=== PATIENT | male | born 1965 | race Caucasian/White ===

== ENCOUNTER 2017-10-22 07:17 | Inpatient (IN) | payer BC ==
[~2017-10-22] VITALS: Ht 190.5 cm; Wt 81.6 kg
[~2017-10-22 07:17] MED LIST: ALLEGRA30 MG; ASPIRIN325 PO; CARISOPRODOL 3350 M1; CLEOCIN HCL150 MG PO; DIABETA 5MG TABL5 MG PO; FLOXIN OTI0.3 %/5 M1 OT; GLUCOPHAGE500 MG PO; HYDROCODONE-AP1 EAC6 PO; KEFLEX500 MG PO; LOPRESSOR25 PO; MECLIZINE 25 MG25 M1 PO; OXYCODONE HCL 55 MG PO; PRILOSEC 20 MG20 MG PO; TRAMADOL 50 MG50 MG PO; VANCOMYCIN1.5 GM/150 IV; VICODIN
[2017-10-22 07:25] VITALS: BP 118/73
[2017-10-22] MEDS ORDERED: TUMS PO (07:27)
[2017-10-22 07:59] LABS: ABSOLUTE BASOPHILS 0.1 thou/uL (0.0-0.2); ABSOLUTE EOSINOPHILS 0.2 thou/uL (0.0-0.7); ABSOLUTE LYMPHOCYTES 1.4 thou/uL (0.8-5.3); ABSOLUTE MONOCYTES 0.6 thou/uL (0.0-1.2); ABSOLUTE NEUTROPHILS 9.6 thou/uL (1.6-8.1); BASOPHILS 0.4 %; EOSINOPHILS 1.8 %; HEMATOCRIT 43.5 % (42.0-52.0); LYMPHOCYTES 11.9 %; MCH 32.3 pg (26.0-34.0); MCHC 34.4 g/dL (28.0-37.0); MCV 93.9 fL (80.0-100.0); MONOCYTES 5.3 %; MPV 8.8 fl. (7.2-11.1); NUCLEATED RBCS 0 /100WBC; PLATELET COUNT* 153 thou/uL (150-400); POLYS 80.6 %; RBC 4.63 mil/uL (4.50-6.00); RDW-CV 12.8 % (10.5-14.5); WBC 11.9 thou/uL (4.0-11.0)
[2017-10-22 08:05] LABS: ANION GAP 3 mmol/L (7-16); BUN 10 mg/dL (7-18); CALCIUM 8.2 mg/dL (8.5-10.1); CHLORIDE 104 mmol/L (98-107); CO2 31 mmol/L (21-32); CREATININE 0.7 mg/dL (0.6-1.3); GLUCOSE 89 mg/dL (70-99); SODIUM 138 mmol/L (136-145)
[2017-10-22 08:16] LABS: ALBUMIN 3.5 g/dL (3.4-5.0); ALKALINE PHOSPHATASE 82 U/L (46-116); LIPASE 99 U/L (73-393); MAGNESIUM 1.8 mg/dL (1.8-2.4); NT-PRO BRAIN NAT PEPTIDE 75 pg/mL (<300); SGOT 17 U/L (15-37); SGPT 22 U/L (30-65); TOTAL BILIRUBIN 0.6 mg/dL (<0.1-1.0); TOTAL PROTEIN 6.9 g/dL (6.4-8.2); TROPONIN-I LEVEL <0.06 ng/mL (<0.06)
[2017-10-22 10:00] VITALS: BP 114/71
[2017-10-22 10:20] VITALS: BP 112/68
--- NOTE | 2017-10-22 11:21 | NUR ---
RECIEVED REPORT. PT TRANSFERRED TO ROOM 224. VSS. CARDIAC MONITORING I PLACE SR. ADMISSION HISTORY AND ASSESSMENT COMPELTED CHARTED. PT ALERT AND ORIENTED. PT ON RA. IV SALINE LOCKED. PT DENIES ANY COMPLAITNS OF PAIN OR DISCOMFORT AT THIS TIME. PT REPORTS THAT HE ATE FOOD T-2 DAYS AND FEELS LIKE SOMTHING IS STUCK IN THROAT. PT DENIES ANY CHEST PAIN. PT ORIENTED TO ROOM AND CALL LIGHT. PT UP INDEPENDTLY. MED REC COMPLETED CHARTED. PT INFORMED OF PLAN OF CARE. WILL CONTINUE TO MONITOR.
[2017-10-22] MEDS ORDERED: CENTRUM SILVER1 EAC2 PO (11:25)
[2017-10-22] MEDS ORDERED: TYLENOL325 MG PO (11:26)
[2017-10-22 11:51] VITALS: BP 107/59
[2017-10-22 15:31] VITALS: BP 107/71
[2017-10-22 15:43] VITALS: BP 107/71
--- NOTE | 2017-10-22 16:07 | EKG ---
[place] [address] ELECTROCARDIOGRAM REPORT Name: CATHERINE LEYVA Room: [address] ADM IN .R.#: [id number] Admission: 10/22/17 Attend Phys: Dillan Munroe Discharge: Date of : 67 Report #: [id number] THIS REPORT FOR: //name// [facility] ED Test Date: 2017-10-22 Test Time: 08:17:24 Pat Name: CATHERINE LEYVA Department: Room: [facility] Gender: M Online Marketer: Katherin JONES : 1965 Requested By: Leonel Khan Order Number: [id number] MD: Charles Ortiz Measurements Intervals Mather Rate: 60 P: 2 HI: 133 QRS: 68 QRSD: 105 T: 58 QT: 410 QTc: 410 Interpretive Statements Sinus rhythm RSR' in V1 or V2, probably normal variant ST elev, probable normal early repol pattern Compared to ECG 11/21/2014 09:44:54 RSR' in V1 or V2 now present ST (T wave) deviation now present Myocardial infarct finding no longer present Electronically Signed On 10-22-2017 16:07:09 PROFESSIONAL SYSTEM ADMINISTRATOR by Charles Ortiz [email or web address] <ELECTRONICALLY SIGNED> By: Charles Ortiz MD, FACC 10/22/17 1607 6 6 Charles Ortiz MD, FACC /EPI
[2017-10-22] MEDS ORDERED: LOSARTAN POTASS50 MG PO (17:06)
--- NOTE | 2017-10-22 17:15 | NUR ---
DISCHARGE ORDERS RECEVEID AND PREPARED. IV AND CARDIAC MONTIORING DISCONTINUED. PT EDUCATED ON DISCHARGE INSTRCTUIONS. PT EDUCATED ON DISCHARGE INSTRCUTIONS. ALL QUESTIONS AND CONCERNS ANSWERED AT THIS TIME. PT SENT HOME [facility] D/C PAPERWORK. PT AMBULATED OFF UNIT
--- NOTE | 2017-10-31 12:31 | CARDNUC ---
[place] [address] CARDIAC NUCLEAR IMAGING REPORT Name: CATHERINE LEYVA Room: [address]#: [id number] Admission: 10/22/17 Attend Phys: Hugo Robins Discharge: 10/22/17 Date of : 67 Date of Service: 10/31/17 1230 Report #: [id number] THIS REPORT FOR: //name// ADDENDUM APPROVED REPORT Exam: Nuclear Stress Test Indication: Chest pain Patient Location: In-Patient Stress Tech: Petra Lobo Stress Nurse: Brielle Scherer RN NM Tech:HEMANT Pacheco Ht: 6 ft 3 in Wt: 180 lbs BSA: 2.10 m2 BMI: 22.49 Rhythm: NSR Medical History Medical History: Carotid artery disease Medications: no cardiac meds Allergies: morphine Cardiac Risk Factors: age, past hx hypertenssion and diabetes, resolved with weith loss Exercise History: Physically active Stress Test Details Stress Test: Pharmacologic stress testing performed using 0.4 mg of regadenoson per 5 mL given IV over 10 seconds. Reason for pharmacologic stress test: physical limitation. HR Resting HR: 64 bpm Max Heart Rate (APMHR): 169 bpm Max HR Achieved: 108 bpm Target HR (85% APMHR): 143 bpm % of APMHR: 63 Recovery HR: 78 bpm BP Resting BP: 107/66 mmHg Max BP: 103/65 mmHg ECG Resting ECG: Sinus Rhythm, normal EKG Stress ECG: Sinus Rhythm, normal EKG ST Change: None Arrhythmia: None Recovery ECG: Sinus Rhythm, [place] [address] CARDIAC NUCLEAR IMAGING REPORT Name: CATHERINE LEYVA Room: [address]#: [id number] Admission: 10/22/17 Attend Phys: Hugo Robins Discharge: 10/22/17 Date of : 67 Date of Service: 10/31/17 1230 Report #: [id number] Change: None Recovery Arrhythmia: None Clinical Reason for Termination: Completed protocol Exercise duration: 0 min sec Exercise capacity: 1 METs Functional Aerobic Impairment 64% The patient had no significant symptoms with Lexiscan infusion. Stress ECG Conclusion The baseline 12-lead elect cardiac gram showed sinus rhythm without significant ST or T wave abnormality. EKGs obtained during and post Lexiscan infusion showed sinus rhythm with no significant ST or T wave changes when compared to baseline. There were no stress-induced arrhythmias. NM EXAM: Myocardial Perfusion REST/STRESS Imaging Protocol: Rest Tc-99m/Stress Tc-99m 1 day Resting Data Rest SPECT myocardial perfusion imaging was performed in supine position 30 minutes following the intravenous injection of 12.0 mCi of Tc-99m Sestamibi. Time of rest injection: 1235 Time of rest imagin The images were gated to evaluate regional wall motion and calculate left ventricular ejection fraction. Administration Route: IV Pharmacologic Stress Pharmacologic stress test was performed by injecting Regadenoson 0.4 mg IV push followed by the intravenous injection of 36.0 mCi of Tc-99m Sestamibi. Time of stress injection: 1400 Time of stress imagin Administration Route: IV Gated Stress SPECT was performed 40 minutes after stress injection. The images were gated to evaluate regional wall motion and calculate left ventricular ejection fraction. Prone imaging was performed. Study Quality Study: [place] [address] CARDIAC NUCLEAR IMAGING REPORT Name: CATHERINE LEYVA Room: [address]#: [id number] Admission: 10/22/17 Attend Phys: Hugo Robins Discharge: 10/22/17 Date of : 67 Date of Service: 10/31/17 1230 Report #: [id number] Artifact: No artifact Study Data At rest, the left ventricular ejection fraction was 78%.. Post stress, the left ventricular ejection was 81%.. TID = 0.86. Perfusion Normal left ventricular perfusion. Wall Motion Normal left ventricular wall motion. Nuclear Conclusion ECG Findings: negative for ischemia Clinical Findings: negative for ischemia Nuclear Findings: negative for ischemia Exercise Capacity: not assessed Left Ventricular Function: normal Risk Study: low Myocardial perfusion images show no defect to suggest infarct or ischemia. Gated study showed normal left ventricular systolic function. This is a low risk study. <Conclusion> The baseline 12-lead elect cardiac gram showed sinus rhythm without significant ST or T wave abnormality. EKGs obtained during and post Lexiscan infusion showed sinus rhythm with no significant ST or T wave changes when compared to baseline. There were no stress-induced arrhythmias. <ELECTRONICALLY SIGNED> By: Charles Ortiz MD, FACC 10/31/17 1230 1230 1230 Charles Ortiz MD, FACC /INF
== END 2017-10-22 17:17 | disposition home or self-care (01) | DRG 392 ==
LOC: M.ERS 07:17 → M.TBA-ER 09:14 → M.2W 09:14
PROVIDERS: Emergency Medicine Emergency Medical Services; ADMIT Internal Medicine
DX: K21.9 Gastro-esophageal reflux disease without esophagitis (principal); I10 Essential (primary) hypertension; E11.9 Type 2 diabetes mellitus without complications; F17.210 Nicotine dependence, cigarettes, uncomplicated; R13.10 Dysphagia, unspecified; Z98.84 Bariatric surgery status; Z88.5 Allergy status to narcotic agent